=== PATIENT | female | born 2005 | race Caucasian/White ===

== ENCOUNTER 2023-01-18 11:06 | Outpatient (REF) | payer MEDICAID, SELFPAY ==
[2023-01-18 13:18] LABS: *AMPHETAMINES SCREEN URINE Negative (Negative); *BARBITURATES SCREEN URINE Negative (Negative); *BENZODIAZEPINES SCREEN URINE Negative (Negative); Cannabinoids THC Negative (Negative); Cocaine Screen,Urine Negative (Negative); METHADONE URINE SCREEN Negative (Negative); OPIATES URINE SCREEN Negative (Negative); Tricyclic Antidepressants Negative (Negative)
[2023-01-23 15:38] LABS: Buprenorphine Negative ng/mL (Cutoff: 5.0); Norbuprenorphine Negative ng/mL (Cutoff: 2.5)
== END 2023-01-18 11:07 | disposition home or self-care (01) ==
LOC: LBN 11:06
PROVIDERS: PCP Advanced Practice Midwife; Visit Provider Advanced Practice Midwife
DX: Z34.91 Encounter for supervision of normal pregnancy, unspecified, first trimester (principal)
CPT/HCPCS: 80307; 80348; 87086

== ENCOUNTER 2023-01-18 14:40 | Outpatient (CLI) | payer MEDICAID, SELFPAY ==
[2023-01-18 11:07] LABS: Panorama Kit Sent via Fed Ex
[2023-01-18 11:34] LABS: Abs Immature Grans 0.02 10^3/uL (0.0-0.06); Absolute Basophil Count 0.04 10^3/uL (0.0-0.2); Absolute Eosinophil Count 0.17 10^3/uL (0.0-0.7); Absolute Lymphocyte Count 1.31 10^3/uL (1.2-3.4); Absolute Neutrophil Count 5.48 10^3/uL (1.2-6.7); Basophils % 0.5; Eosinophils % 2.3; HCT 35.3 % (36.0-46.0); HGB 12.1 g/dL (11.2-15.7); Immature Grans % 0.3; Lymphocytes % 17.4; MCH 28.9 pg (27.0-33.0); MCHC 34.3 % (32.0-36.0); MCV 84 fL (80-95); MPV 9.4 fL (8.0-11.0); Monocytes % 6.6; Neutrophils % 72.9; Platelet Count 150 10^3/uL (130-400); RBC 4.19 10^6/uL (3.93-5.22); RDW 12.9 % (11.7-14.6); RDW-SD 39.2 fL; WBC 7.52 10^3/uL (4.4-10.8)
[2023-01-18 11:47] LABS: TSH (W/Ref FT4) 0.61 uIU/mL (0.52-4.13)
[2023-01-19 09:25] LABS: Hepatitis B Surface Ag Negative (Negative)
[2023-01-19 09:48] LABS: HIV-1/2 Ag & Ab Screen Negative (Negative)
[2023-01-19 10:08] LABS: Hepatitis C Ab w Rflx HCV PCR Negative (Negative)
[2023-01-19 10:42] LABS: Varicella IgG Antibody Positive (See Note)
[2023-01-19 10:46] LABS: Rubella IgG Ab (UVM) Positive (See Note)
[2023-01-20 22:44] LABS: Syphilis IgG w/Reflex Nonreactive (Nonreactive)
[2023-02-03 00:34] LABS: Result Summary NEGATIVE; Specimen WB Whole Blood
== END 2023-01-18 14:41 | disposition home or self-care (01) ==
LOC: LBO 14:42
PROVIDERS: PCP Advanced Practice Midwife; Visit Provider Advanced Practice Midwife
DX: Z34.91 Encounter for supervision of normal pregnancy, unspecified, first trimester
CPT/HCPCS: 36415; 81220; 81222; 86787; 86803; 86850; 86900; 86901; 87340; 87389; 84443; 85025; 86762; 86780

== ENCOUNTER 2023-01-25 21:34 | Emergency (ER) | payer MEDICAID, SELFPAY ==
--- NOTE | 2023-01-25 21:30 | DI.US_ITS ---
Exam(s) US OB 1ST TRIMESTER EXAM: US OB 1ST TRIMESTER CLINICAL HISTORY: spotting. TECHNIQUE: First trimester obstetrical ultrasound was performed. COMPARISON: US POCUS EXAM from 01/07/2023 FINDINGS: There is an intrauterine gestational sac which contains a yolk sac and viable pole which exhibi ts heart rate of 155 bpm. movement was identified [place]-rump length measurement is 65 mm, corresponding to 12 weeks and 2 days gestational age. There is small subchorionic hemorrhage evident. There is normal amount of amniotic fluid. Of note is diffuse abnormal thickening of subcutaneous tissues over head, neck, and body of the fetus , concerning for hydrops. Maternal ovaries: Both appear unremarkable There is no fluid in the cul-de-sac and adnexal regions. IMPRESSION:: Single viable intrauterine gestation which is approximately 12 weeks and 2 days gestati onal age by crown rump length measurement. There is a small subchorionic hemorrhage evident Diffuse symmetrical thickening of subcutaneous soft tissues of head, neck, and body are suspici ous for hydrops. Appropriate follow-up recommended. First read by [facility]. Final report called by myself to ER physician on 01/26/2023 at 8:45 a.m. DATA REPOSITORY:
[2023-01-25 21:38] VITALS: BP 94/62; PULSE 103; RESP 20; TEMP 36.8; O2SAT 97
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
[2023-01-25 22:27] LABS: Abs Immature Grans 0.03 10^3/uL (0.0-0.06); Absolute Basophil Count 0.06 10^3/uL (0.0-0.2); Absolute Eosinophil Count 0.34 10^3/uL (0.0-0.7); Absolute Neutrophil Count 6.53 10^3/uL (1.2-6.7); Basophils % 0.7; Eosinophils % 3.7; HCT 37.8 % (36.0-46.0); HGB 12.9 g/dL (11.2-15.7); Immature Grans % 0.3; Lymphocytes % 16.4; MCH 28.9 pg (27.0-33.0); MCHC 34.1 % (32.0-36.0); MCV 85 fL (80-95); MPV 8.6 fL (8.0-11.0); Monocytes % 7.6; Neutrophils % 71.3; Platelet Count 166 10^3/uL (130-400); RBC 4.46 10^6/uL (3.93-5.22); RDW-SD 40.2 fL; WBC 9.16 10^3/uL (4.4-10.8)
--- NOTE | 2023-01-25 22:28 | DI.VRAD_ITS ---
PROCEDURE INFORMATION: Exam: US , Transvaginal Exam date and time: 01/25/2023 9:42 PM Age: 17 years old Clinical indication: Lmp or gestational age (in weeks): 12; Other: Spotting; TECHNIQUE: Imaging protocol: Real-time transvaginal obstetrical ultrasound of the maternal pelvis with image documentation. Transvaginal imaging was used for better evaluation of the fetus, adnexa, and/or cervix. COMPARISON: No relevant prior studies available. FINDINGS: Gestation: Single live intrauterine gestation. heart rate: heart rate 155 bpm. Amniotic fluid: Amniotic fluid volume is subjectively normal. ANATOMY: nuchal translucency: Approximately 7 mm thick nuchal translucency. Recommend attention to this area on follow-up. BIOMETRY: Gestational age (AUA): [place]-rump length correlates with estimated gestational age of twelve weeks 6 days. MATERNAL: Right ovary/adnexa: Right ovary is normal in size and morphology. It was not interrogated with Doppler. Left ovary/adnexa: Left ovary is normal in size and morphology. It was not interrogated with Doppler. Intraperitoneal space: No significant free fluid. IMPRESSION: 1. Single live intrauterine gestation as above. 2. Approximately 7 mm thick nuchal translucency. Recommend attention to this area on follow-up. Dictated and Authenticated by: Fam Dockery MD. Ordering:MOHIT Wang MD
[2023-01-25 22:42] LABS: ALT 10 U/L (14-59); AST 14 U/L (15-37); Albumin 3.4 g/dL (3.4-5.0); Alkaline Phosphatase 47 U/L (46-116); Anion Gap 10.4 mmol/L (3-11); BUN 7 mg/dL (7-18); Bilirubin, Total 0.3 mg/dL (0.2-1.0); CO2 25.6 mmol/L (21.0-32.0); CREATININE 0.6 mg/dL (0.55-1.02); Calcium 8.9 mg/dL (8.5-10.1); Chloride 105 mmol/L (98-107); Estimated GFR 132.52 (mL/min/1.73m2); Glucose 87 mg/dL (74-106); Potassium 3.5 mmol/L (3.5-5.1); Sodium 141 mmol/L (136-145)
[2023-01-25 23:21] VITALS: BP 84/54; PULSE 85; RESP 16; TEMP 36.8; O2SAT 99
--- NOTE | 2023-01-26 14:09 | ED.FU.B_ITS ---
Date of service: 01/26/23 Time of Service: 08:00 Follow Up Plan: Alcohol level radiologist who reviewed the [facility] reading on this patient who came in yesterday with an episode of vaginal bleeding and had an ultrasound of her fetus. She is 12 weeks and the the red bleeding was read yesterday as negative but today the radiologist called me stating that he felt that the lower swelling and mild fluid collection and thickening of the subcutaneous tissues over the head neck and body of the feet is concerning for hydrops of the talus. I have called the patient who is following now with the continuous improvement black belt and had also spoke with the continuous improvement black belt at about the ultrasound finding who will deal with the patient up according to the continuous improvement black belt the patient's fetus is a trisomy 13 patient.
== END 2023-01-25 23:24 | disposition home or self-care (01) ==
PROVIDERS: Emergency Provider Student in an Organized Health Care Education/Training Program; PCP Advanced Practice Midwife
DX: O20.0 Threatened abortion (principal)
CPT/HCPCS: 80053; 86850; 86900; 86901; 99284; 76801; 85025; 99283

== ENCOUNTER 2023-03-11 14:57 | Outpatient (REF) | payer MEDICAID, SELFPAY | END 2023-03-11 14:58 | disposition home or self-care (01) | LOC: LBN 14:57 | PROVIDERS: PCP Advanced Practice Midwife; Visit Provider Advanced Practice Midwife | DX: O26.892 Other specified pregnancy related conditions, second trimester (principal); R10.2 Pelvic and perineal pain; R30.0 Dysuria; Z3A.29 29 weeks gestation of pregnancy | CPT/HCPCS: 87086; 87480; 87510; 87660 ==

== ENCOUNTER 2023-04-04 00:34 | Emergency (ER) | payer MEDICAID, SELFPAY ==
[2023-04-04] VITALS (69 sets, daily range): BP systolic 90–123; BP diastolic 58–88; PULSE 69–130; RESP 16–24; TEMP 37; O2SAT 83–100
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
[2023-04-04 01:07] LABS: Abs Immature Grans 0.04 10^3/uL (0.0-0.06); Absolute Monocyte Count 0.73 10^3/uL (0.1-0.8); Absolute Neutrophil Count 3.27 10^3/uL (1.2-6.7); Basophils % 1.3; Eosinophils % 3.8; HCT 39.3 % (36.0-46.0); HGB 13.6 g/dL (11.2-15.7); Immature Grans % 0.5; Lactate 1.9 mmol/L (0.6-1.4); Lymphocytes % 43.4; MCH 28.5 pg (27.0-33.0); MCHC 34.6 % (32.0-36.0); MCV 82 fL (80-95); MPV 8.9 fL (8.0-11.0); Monocytes % 9.3; Neutrophils % 41.7; Platelet Count 279 10^3/uL (130-400); RBC 4.77 10^6/uL (3.93-5.22); RDW-SD 36.5 fL; WBC 7.84 10^3/uL (4.4-10.8)
[2023-04-04] MEDS: Ondansetron 4 MG/2 ML VIAL IVP ×2 (01:14→06:37)
[2023-04-04] MEDS: MORPHine 4 MG/ML SYR IVP ×2 (01:14→04:48)
[2023-04-04] MEDS: Ketorolac 15 MG/ML VIAL IVP (01:14)
[2023-04-04 01:26] LABS: ALT 17 U/L (14-59); AST 15 U/L (15-37); Albumin 4.1 g/dL (3.4-5.0); Alkaline Phosphatase 67 U/L (46-116); Anion Gap 18.9 mmol/L (3-11); BUN 9 mg/dL (7-18); Bilirubin, Total 0.9 mg/dL (0.2-1.0); CO2 22.1 mmol/L (21.0-32.0); CREATININE 0.9 mg/dL (0.55-1.02); Calcium 9.5 mg/dL (8.5-10.1); Chloride 103 mmol/L (98-107); Estimated GFR 94.44 (mL/min/1.73m2); Glucose 108 mg/dL (74-106); Potassium 3.5 mmol/L (3.5-5.1); Sodium 144 mmol/L (136-145); Total Protein 7.4 g/dL (6.4-8.2)
[2023-04-04 01:41] LABS: Procalcitonin < 0.1 ng/mL
[2023-04-04 02:25] LABS: HCG Quant, Pregnancy 13 mIU/mL (1-3)
[2023-04-04 03:50] LABS: Bilirubin Negative (Negative); Blood Negative (Negative); Clarity Clear (Clear); Glucose Negative (Negative); Ketones Trace mg/dL (Negative); Leukocyte Esterase Trace (Negative); Nitrite Negative (Negative); Specific Gravity 1.015 (1.005-1.025); Urobilinogen 0.2 mg/dL (Up to 0.2); pH 7.5 (5-8)
[2023-04-04 03:59] LABS: Bacteria Rare HPF (Negative); C & S Indicated? No; Crystals Negative HPF (Negative); Epithelial Cells Moderate HPF (Negative); Mucus Negative (Negative); RBC 0-2 HPF (0-2)
== END 2023-04-04 07:45 | disposition other institution (70) ==
PROVIDERS: Emergency Provider Student in an Organized Health Care Education/Training Program; PCP Advanced Practice Midwife
DX: O90.89 Other complications of the puerperium, not elsewhere classified (principal); R10.2 Pelvic and perineal pain; Z87.891 Personal history of nicotine dependence
CPT/HCPCS: 36415; 80053; 84145; 96374; 96375; 99283; 81003; 81015; 83605; 84702; 85025; J1885; J2270; J2405

== ENCOUNTER 2023-04-05 14:48 | Emergency (ER) | payer MEDICAID, SELFPAY ==
[2023-04-05] VITALS (21 sets, daily range): BP systolic 90–122; BP diastolic 59–89; PULSE 71–110; RESP 13–25; TEMP 36.9; O2SAT 93–100
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
[2023-04-05] MEDS: LORazepam 0.5 MG TAB PO (15:16)
[2023-04-05] MEDS: Ibuprofen 400 MG TAB PO (15:16)
== END 2023-04-05 16:55 | disposition home or self-care (01) ==
PROVIDERS: Emergency Provider Student in an Organized Health Care Education/Training Program; PCP Advanced Practice Midwife
DX: F41.0 Panic disorder [episodic paroxysmal anxiety] (principal); Z87.59 Personal history of other complications of pregnancy, childbirth and the puerperium
CPT/HCPCS: 99283

== ENCOUNTER 2024-06-22 10:38 | Emergency (ER) | payer MEDICAID, SELFPAY ==
[2024-06-22 10:42] VITALS: BP 101/61; PULSE 96; RESP 20; TEMP 36.5; O2SAT 100
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
[2024-06-22 11:43] LABS: Bilirubin Negative (Negative); Blood Negative (Negative); Clarity Clear (Clear); Glucose Negative (Negative); Ketones Negative (Negative); Leukocyte Esterase Negative (Negative); Nitrite Negative (Negative); Urobilinogen 0.2 mg/dL (Up to 0.2); pH 6.5 (5-8)
[2024-06-22 12:21] VITALS: BP 100/61; PULSE 70; RESP 15; O2SAT 99
== END 2024-06-22 12:28 | disposition home or self-care (01) ==
PROVIDERS: Emergency Provider Emergency Medicine; PCP Advanced Practice Midwife
DX: O26.892 Other specified pregnancy related conditions, second trimester (principal); R10.9 Unspecified abdominal pain; Z3A.18 18 weeks gestation of pregnancy; Z87.891 Personal history of nicotine dependence
CPT/HCPCS: 99283; 81003; 87480; 87510; 87660

== ENCOUNTER 2025-01-12 23:07 | Emergency (ER) | payer MEDICAID, SELFPAY ==
[2025-01-12 23:20] VITALS: BP 107/66; PULSE 98; RESP 97; TEMP 36.8; O2SAT 97
[2025-01-13 00:14] LABS: Glucose Negative (Negative)
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
[2025-01-13 00:38] VITALS: PULSE 90; RESP 18; O2SAT 99
--- NOTE | 2025-01-13 10:42 | NUR.NOTE ---
accessed Pt chartt oNursing Note:
--- NOTE | 2025-01-13 10:43 | NUR.NOTE ---
Accessed Pt chart to obtain primary care provider. Faxing an authorization request to primary.
== END 2025-01-13 00:39 | disposition home or self-care (01) ==
PROVIDERS: Emergency Provider Student in an Organized Health Care Education/Training Program; PCP Advanced Practice Midwife
DX: K59.00 Constipation, unspecified (principal); K64.4 Residual hemorrhoidal skin tags
CPT/HCPCS: 99283 ×2; 81003